=== PATIENT | male | born 1995 | race Caucasian/White ===

== ENCOUNTER 2018-07-21 19:56 | Emergency (ER) | payer OTHER ==
[~2018-07-21] VITALS: Ht 170.2 cm; Wt 75.0 kg
[2018-07-21 19:58] VITALS: Ht 170.2 cm; Wt 75.0 kg
[2018-07-21] MEDS ORDERED: IBUPROFEN 800 MG TAB PO ONE (20:00)
--- NOTE | 2018-07-21 21:01 | ERD ---
ER Documentation Chief Complaint Chief Complaint bib ra / pd from street for knee pain s/p falling while running from police HPI Patient is a 22-year-old male who presents with ambulance and police. He used methamphetamines and was being arrested and ran away from police. He felt dizzy and then fell to the ground and scraped his knees. He complains of bilateral knee pain. He does admit to smoking methamphetamines. He did not pass out. He does not currently have a primary doctor. Upon review of old medical records this is the patient's first visit to the emergency department. ROS All systems reviewed and are negative except as per history of present illness. Allergies Allergies: Coded Allergies: No Known Allergy (Unverified , 07/21/18) PMhx/Soc Medical and Surgical Hx: pt denies Medical Hx, pt denies Surgical Hx Hx Alcohol Use: Yes Hx Substance Use: Yes (METH) Hx Tobacco Use: No Smoking Status: Unknown if ever smoked FmHx Family History: No diabetes Physical Exam Vitals Vital Signs Date Temp Pulse Resp B/P (MAP) Pulse Ox O2 O2 Flow FiO2 Time Delivery Rate 07/21/18 98.5 110 19 106/89 100 Room Air 21:15 (95) 07/21/18 98.5 132 22 110/81 100 19:58 (91) Physical Exam Const: No acute distress Head: Atraumatic Eyes: Normal Conjunctiva ENT: Normal External Ears, Nose and Mouth. Neck: Full range of motion. No meningismus. Resp: Clear to auscultation bilaterally Cardio: Tachycardic rate without murmur Abd: Soft, non tender, non distended. Normal bowel sounds Skin: No petechiae or rashes Back: No midline or flank tenderness Ext: Abrasions to the knees bilaterally Neur: Awake and alert Psych: Normal Mood and Affect Results 24 hrs Laboratory Tests Test 07/21/18 20:00 Bedside Glucose 149 mg/dL Current Medications Medications Dose Sig/Raul Start Time Status Last (Trade) Ordered Route PRN Stop Time Admin Dose Reason Admin Ibuprofen 800 mg ONCE ONCE 07/21/18 DC 07/21/18 (Motrin) PO 20:00 20:07 07/21/18 20:01 Procedures/MDM EKG read by me: Rate/Rhythm: Sinus tachycardia at a rate of 135 Intervals: Normal Impression: Sinus tachycardia without ischemia Accu-Chek is normal. Bilateral knee x-ray negative per radiology. Patient is a 22-year-old male presents with bilateral knee pain after methamphetamine use. I believe his symptoms are related to methamphetamine use including the fast heart rate. X-ray shows no signs of fracture or dislocation of the knees bilaterally. Accu-Chek was normal. EKG shows tachycardia but no ischemia. The patient has been medically cleared. He will be discharged in police custody. He was given ibuprofen for pain. He can return for any worsening symptoms. He should follow-up with the local clinics within 1 week as he does not currently have a primary doctor. Departure Diagnosis: Primary Impression: Methamphetamine abuse Additional Impression: Knee pain Chronicity: acute Laterality: bilateral Qualified Codes: M25.561 - Pain in right knee; M25.562 - Pain in left knee Condition: Fair Patient Instructions: Understanding Methamphetamine Abuse and Addiction, Abrasion Referrals: COMMUNITY CLINICS YOU HAVE RECEIVED A MEDICAL SCREENING EXAM AND THE RESULTS INDICATE THAT YOU DO NOT HAVE A CONDITION THAT REQUIRES URGENT TREATMENT IN THE EMERGENCY DEPARTMENT. FURTHER EVALUATION AND TREATMENT OF YOUR CONDITION CAN WAIT UNTIL YOU ARE SEEN IN YOUR DOCTORS OFFICE WITHIN THE NEXT 1-2 DAYS. IT IS YOUR RESPONSIBILITY TO MAKE AN APPOINTMENT FOR FOLOW-UP CARE. IF YOU HAVE A PRIMARY DOCTOR --you should call your primary doctor and schedule an appointment IF YOU DO NOT HAVE A PRIMARY DOCTOR YOU CAN CALL OUR PHYSICIAN REFERRAL HOTLINE AT IF YOU CAN NOT AFFORD TO SEE A PHYSICIAN YOU CAN CHOSE FROM THE FOLLOWING [facility] [address] [facility] [address] [facility]. [facility] [address] [facility] [facility] [address] [facility] [facility] [address] [facility] [address] [facility]. [facility]. [address] Additional Instructions: Call your primary care doctor TOMORROW for an appointment during the next 1 WEEK.Tell the synthetic department supervisor that you were referred from this facility.See the doctor sooner or return here if your condition worsens before your appointment time. YUMIKO CHAVEZ MD Jul 21, 2018 21:01
[2018-07-21 21:15] VITALS: BP 106/89; PULSE 110; RESP 19
== END 2018-07-21 21:18 | disposition home or self-care (01) ==
LOC: E/R 19:56
DX: M25.561 Pain in right knee (principal); M25.562 Pain in left knee; F15.10 Other stimulant abuse, uncomplicated
CPT/HCPCS: 82962; 93005